=== PATIENT | male | born 1955 | race Caucasian/White ===

== ENCOUNTER 2023-04-23 00:19 | Emergency (ER) | payer MEDICARE, BC ==
[~2023-04-23] VITALS: Ht 175.3 cm; Wt 63.5 kg
[2023-04-23] MEDS ORDERED: HYDROCODONE/APAP 10-325 MG TABLET ONE (01:06)
[2023-04-23] MEDS ORDERED: HYDROCODONE/APAP 10-325 MG TABLET PO ONE (01:15)
[2023-04-23] MEDS ORDERED: IBUP-1958 PO (01:48)
[2023-04-23] MEDS ORDERED: HYDR-3980 PO (01:48)
[2023-04-23 01:54] VITALS: BP 145/96; O2SAT 98
== END 2023-04-23 01:55 | disposition home or self-care (01) ==
LOC: ER 00:30
DX: S22.32XA Fracture of one rib, left side, initial encounter for closed fracture (principal); Z79.899 Other long term (current) drug therapy; V29.99XA Rider (driver) (passenger) of other motorcycle injured in unspecified traffic accident, initial encounter; Y93.89 Activity, other specified; Y92.410 Unspecified street and highway as the place of occurrence of the external cause; Y99.8 Other external cause status
CPT/HCPCS: 71250; A4663

== ENCOUNTER 2024-03-21 11:50 | Emergency (ER) | payer MEDICARE, BC ==
[~2024-03-21] VITALS: Ht 175.3 cm; Wt 65.3 kg
[~2024-03-21 11:50] MED LIST: HYDR-3980 PO; IBUP-1958 PO
[2024-03-21 12:00] VITALS: O2SAT 98
[2024-03-21] MEDS ORDERED: LIDO30AD10 TP (13:11)
[2024-03-21] MEDS ORDERED: HYDR-3980 PO (13:11)
== END 2024-03-21 13:22 | disposition home or self-care (01) ==
LOC: ER 11:50
DX: S22.32XA Fracture of one rib, left side, initial encounter for closed fracture (principal); K21.9 Gastro-esophageal reflux disease without esophagitis; Z79.899 Other long term (current) drug therapy; Z79.1 Long term (current) use of non-steroidal anti-inflammatories (NSAID); W17.89XA Other fall from one level to another, initial encounter; Y93.89 Activity, other specified; Y92.89 Other specified places as the place of occurrence of the external cause; Y99.8 Other external cause status
CPT/HCPCS: 71101; A4606